=== PATIENT | female | born 1960 | race Caucasian/White ===

== ENCOUNTER → 2017-06-17 | Outpatient (CLI) | payer MEDICARE, MEDICAID ==
[~2017-06-17] MED LIST: AMOXICILLIN 50500 MG PO; ASPIRIN325 M1 PO; CRESTOR10 MG PO; KEFLEX 500MG.500 MG PO; LISINOPRIL10 MG PO; LORTAB 5/500 501 TAB PO; MECLIZINE25 MG PO; METOPROLOL25 MG PO; PLAVIX75 MG PO; PREDNISONE 20MG20 MG PO; TESSALON PERLE100 MG PO
== END ==
LOC: LAB 10:46
DX: E78.5 Hyperlipidemia, unspecified (principal); Z79.899 Other long term (current) drug therapy